=== PATIENT | male | born 1965 | race Caucasian/White ===

== ENCOUNTER 2018-09-14 10:42 | Emergency (ER) | payer MEDICAID ==
[~2018-09-14] VITALS: Ht 177.8 cm; Wt 84.2 kg
[2018-09-14 10:53] VITALS: Ht 177.8 cm; Wt 84.2 kg
[2018-09-14] MEDS ORDERED: KETOROLAC 15 MG INJ IM STA (12:19)
--- NOTE | 2018-09-14 12:34 | ERD ---
ER Documentation Chief Complaint Chief Complaint pt is bib self with c/o left arm pain and numbness x 1 hr HPI This is a 52-year-old male with no significant past medical history who is pre senting with left-sided shoulder pain and tingling radiating into his left upper arm. 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 The patient reports that over the last 1-2 days, the patient has felt a soreness in his left shoulder and arm, but it got progressively worse this morning which is what prompted him to come to the emergency department. The patient can range the arm fully, though it is painful. His sensation is intact. His coordination is intact. His strength is intact. The patient does not endorse any other symptoms. He has no facial droop. He has no dysarthria or aphasia. He has no trouble swallowing. He has no weakness or numbness or tingling to the face or other extremities. ROS All systems reviewed and are negative except as per history of present illness. Medications Home Meds Active Scripts Ibuprofen* (Ibuprofen*) 600 Mg Tablet, 600 MG PO Q6H PRN for PAIN AND/OR INFLAMMATION, #30 TAB Prov:BARI BOWMAN MD 09/14/18 Cyclobenzaprine Hcl* (Cyclobenzaprine Hcl*) 5 Mg Tablet, 5 MG PO Q8H PRN for MUSCLE SPASMS, #20 TAB Prov:BARI BOWMAN MD 09/14/18 PMhx/Soc Medical and Surgical Hx: pt denies Medical Hx, pt denies Surgical Hx FmHx Family History: No diabetes, No coronary disease Physical Exam Vitals Vital Signs Date Temp Pulse Resp B/P (MAP) Pulse Ox O2 O2 Flow FiO2 Time Delivery Rate 09/14/18 98.8 102 20 173/90 98 10:53 (117) Physical Exam Const: No apparent distress, well-developed, well-nourished Head: Normocephalic, Atraumatic Eyes: Normal Conjunctiva. Extraocular movements intact. Pupils equal, round and reactive to light ENT: Normal External Ears, Nose and Mouth. Neck: Full range of motion. No meningismus. Resp: Clear to auscultation bilaterally, No wheezes, rales or rhonchi Cardio: Regular rate and rhythm. No murmurs, rubs or gallops Abd: Soft, non tender, non distended. Normal bowel sounds Skin: No petechiae or rashes Back: No midline tenderness. No CVA tenderness. Tenderness to palpation and range of movement to the left shoulder blade and posterior shoulder. Ext: No cyanosis, or edema Neur: Awake and alert, oriented 4. Cranial nerves intact. No facial droop. Normal strength, sensation and coordination. Normal finger to nose coordination testing bilaterally. Normal alternating hand movements bilaterally. No neg lect. Psych: Normal Mood and Affect Results 24 hrs Current Medications Medications Dose Sig/Hedy Start Time Status Last (Trade) Ordered Route PRN Stop Time Admin Dose Reason Admin Ketorolac 15 mg ONCE STAT 09/14/18 DC 09/14/18 Tromethamine IM 12:19 09/14/18 12:33 (Toradol) 12:21 Procedures/MDM MDM The patient's presentation warrants further investigation. Previous medical records, if available, were reviewed. EKG EKG read by me: Rate/Rhythm: Regular rate and rhythm at a rate of 100 bpm Intervals: Normal [place]: Normal Impression: No evidence of ischemia or arrhythmia TREATMENT/DISPOSITION The patient presents for left shoulder pain and reported paresthesias. 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 I do suspect a musculoskeletal etiology of his symptoms today. Objectively, the patient has no neuro deficits. The patient's NIH stroke scale is 0. I have very low suspicion for cerebral ischemia. The patient has no headache. He has no personal or family history of cerebral aneurysm. I have low suspicion for subarachnoid hemorrhage or other intracranial hemorrhage. The patient's symptoms are unlikely to be related to a metabolic emergency. I do not see any evidence of soft tissue infection. The patient was treated with Toradol in the emergency department. Upon reevaluation of the patient, symptoms have improved. No emergent diagnoses were identified. At this time, I feel that the patient stable for discharge. The patient was instructed to follow-up with a primary care physician in 1-3 days. The patient will be given strict precautions with which to return to the emergency department. Prescriptions: Ibuprofen, Flexeril The patient's blood pressure was elevated at greater than 120/80 while in the emergency department. The patient was otherwise stable with no evidence of hypertensive urgency or emergency. The patient does not require admission for blood pressure control. I have discussed with the patient the risks of hypertension. I have instructed the patient to return to the ER for any new or worsening symptoms including chest pain, shortness of breath, headache, blurred vision, confusion, nausea, vomiting or LOC. I have advised the patient to follow up with the primary care physician for outpatient monitoring and treatment for hypertension in 1-3 days. Disclaimer: Inadvertent spelling and grammatical errors are likely due to EHR/dictation software use and do not reflect on the overall quality of patient care. Note that the electronic time recorded on this note does not necessarily reflect the actual time of the patient encounter. Departure Diagnosis: Primary Impression: Left shoulder pain Chronicity: acute Qualified Codes: M25.512 - Pain in left shoulder Additional Impression: Paresthesia of arm Condition: Stable BARI BOWMAN MD Sep 14, 2018 12:34
[2018-09-14] MEDS ORDERED: IBUP-1542 PO (12:36)
[2018-09-14] MEDS ORDERED: CYCL5TAB PO (12:36)
[2018-09-14 13:08] VITALS: BP 165/89; PULSE 94; RESP 18
== END 2018-09-14 13:11 | disposition home or self-care (01) ==
LOC: E/R 10:42
DX: M25.512 Pain in left shoulder (principal); R20.2 Paresthesia of skin
CPT/HCPCS: 93005; 96372; J1885; Z7502

== ENCOUNTER 2018-09-21 08:15 | Emergency (ER) | payer MEDICAID ==
[~2018-09-21] VITALS: Wt 89.0 kg
[~2018-09-21 08:15] MED LIST: CYCL5TAB PO; IBUP-1542 PO
--- NOTE | 2018-09-21 10:32 | ERD ---
ER Documentation Chief Complaint Chief Complaint BACK PAIN X 6 DAYS HPI 52-year-old male, previously healthy, presents to the emergency department, complaining of worsening of back pain. The patient was seen here 5 days ago and discharged home with muscle relaxants and ibuprofen. He denies distal weakness, numbness or tingling. The patient is requesting a medication that helps him to sleep. Otherwise, no fever, no chills, no rashes. ROS All systems reviewed and are negative except as per history of present illness. Medications Home Meds Active Scripts Ibuprofen* (Ibuprofen*) 600 Mg Tablet, 600 MG PO Q6H PRN for PAIN AND/OR INFLAMMATION, #30 TAB Prov:BARI BOWMAN MD 09/14/18 Cyclobenzaprine Hcl* (Cyclobenzaprine Hcl*) 5 Mg Tablet, 5 MG PO Q8H PRN for MUSCLE SPASMS, #20 TAB Prov:BARI BOWMAN MD 09/14/18 Allergies Allergies: Coded Allergies: No Known Allergy (Unverified , 09/21/18) PMhx/Soc History of Surgery: No Anesthesia Reaction: No Hx Neurological Disorder: No Hx Respiratory Disorders: No Hx Cardiac Disorders: No Hx Psychiatric Problems: No Hx Miscellaneous Medical Probl: No Hx Alcohol Use: No Hx Substance Use: No Hx Tobacco Use: Yes Physical Exam Vitals Vital Signs Date Temp Pulse Resp B/P (MAP) Pulse Ox O2 O2 Flow FiO2 Time Delivery Rate 09/21/18 98.6 78 18 173/96 99 08:18 (121) Physical Exam Patient is in no acute distress, vital signs stable. Alert and fully oriented. EYES: PERRLA, EOMI, Sclera and conjunctiva appear normal. EARS: Canals clear, tympanic membranes WNL THROAT: Normal oropharynx. NECK: Supple, No lymphadenopathy. Full ROM without pain or tenderness. HEART: RRR, no rubs, murmurs, clicks or gallops. LUNGS: Clear to auscultation. ABDOMEN: Soft, non-tender without masses or hepatosplenomegaly. EXTREMITIES: No edema bilaterally. BACK: Normal inspection, no deformity, decreased range of motion for lateral rotation and flexion. No vertebral tenderness, bilateral lower muscle spasm. NEURO: Cranial nerves grossly intact, no motor or sensory deficit Results 24 hrs Current Medications Medications Dose Sig/Hedy Start Time Status Last (Trade) Ordered Route PRN Stop Time Admin Dose Reason Admin Ketorolac 30 mg ONCE STAT 09/21/18 DC 09/21/18 Tromethamine IM 10:44 09/21/18 11:02 (Toradol) 10:56 Procedures/MDM At the time of discharge, patient nontoxic, ambulating, vital signs stable, no gross neurologic deficit. differential diagnosis include but not limited to: lumbar sprain/strain, sciatica, herniated disk, UTI less likely pyelo, kidney st one. Neurovascular exam grossly intact. no clinical findings suggestive of acute infectious process, no acute deformity, no edema, no rashes. Physical examination and clinical presentation consistent most likely with acute on chronic back pain. Results and clinical impression discussed with the patient who agrees with management. The patient is stable to be treated outpatient and will be discharged home with recommendations and close monitoring The patient was instructed to follow up with the primary care provider in the next 48h. If symptoms persist, worsen or new symptoms develop, then patient should return to the ED immediately. Instructions explained and given to patient with acknowledgment and demonstrated understanding. Disclaimer: Inadvertent spelling and grammatical errors are likely due to EHR/dictation software use and do not reflect on the overall quality of patient care. Also, please note that the electronic time recorded on this note does not necessarily reflect the actual time of the patient encounter. Departure Diagnosis: Primary Impression: Back pain Condition: Stable Patient Instructions: Back Pain (Acute Or Chronic) Additional Instructions: Muchas baltazar por [facility] para darden servicio. Esperamos que en darden visita a la mathew de emergencia darden problema medico haya sido solucionado y que se sienta mucho mejor. Para estar seguros que darden mejoria sigue en proceso, le pedimos el favor de hacer tommy geovanni de seguimiento medico con darden doctor primario en los proximos 2-4 mendez. Lleve con usted estos documentos y las medicinas recetadas. Si terence sintomas empeoran, NO SE ESPERE, por favor regrese a mathew de emergencia INMEDIATAMENTE. En stephanie que usted no tenga un mdico de atencin primaria: Llame al mdico o clnica comunitaria de referencia que aparece abajo hilda las horas de consultorio para hacer tommy geovanni para que le vean. CLINICAS: [facility] [phone] [facility] [phone] [id number] [facility] [id number] [place] [phone] [place] [id number] [phone] [facility]. [phone] SAVANNA BENJAMIN MD Sep 21, 2018 10:32
[2018-09-21] MEDS ORDERED: KETOROLAC 30 MG INJ IM STA (10:44)
[2018-09-21] MEDS ORDERED: HYDR-843 PO (11:09)
[2018-09-21] MEDS ORDERED: ACET325T33 PO (11:09)
[2018-09-21] MEDS ORDERED: PRED20TA PO (11:09)
[2018-09-21 11:38] VITALS: BP 163/98; PULSE 89; RESP 18
== END 2018-09-21 11:39 | disposition home or self-care (01) ==
LOC: FTE 08:15
DX: M54.9 Dorsalgia, unspecified (principal); Z87.891 Personal history of nicotine dependence
CPT/HCPCS: 96372; J1885; Z7502